=== PATIENT | female | born 1950 | race Caucasian/White ===

== ENCOUNTER 2019-02-26 11:35 | Inpatient (IN) | payer MEDICARE ==
[~2019-02-26] VITALS: Ht 167.6 cm; Wt 73.4 kg
[2019-02-26] MEDS ORDERED: 0.9% SODIUM CHLORIDE 10 ML SYRINGE IVP PRN ×2 (11:45→13:15)
[2019-02-26] MEDS ORDERED: SODIUM CHLORIDE 0.9% 1,000 ML IV ONE ×2 (11:45→21:30)
[2019-02-26] MEDS ORDERED: ACETAMINOPHEN 1000 MG/ISO-OSM 100 ML IV ONE (12:00)
[2019-02-26] MEDS ORDERED: CefTRIAXone SODIUM 2 GM in DEXTROSE 5%-WATER 50 ML IV ONE (12:00)
[2019-02-26] MEDS ORDERED: VANCOMYCIN HCL 1.5 GM in DEXTROSE 5%-WATER 250 ML IV ONE (12:00)
[2019-02-26 12:14] LABS: BASOPHILS % (AUTO) 0.8 % (0.0-2.0); EOSINOPHILS % (AUTO) 0.2 % (1.0-6.0); HEMATOCRIT 31.4 % (36-46); HEMOGLOBIN 10.6 g/dL (12.0-16.0); LYMPHOCYTES # (AUTO) 0.2 K/uL (1.0-4.8); LYMPHOCYTES % (AUTO) 3.8 % (22.0-44.0); MEAN CORPUSCULAR HEMOGLOBIN 32.1 pg (26.0-34.0); MEAN CORPUSCULAR HGB CONC 33.9 G/dL (31.0-37.0); MEAN CORPUSCULAR VOLUME 95 fL (80-100); MONOCYTES # (AUTO) 0.1 K/uL (0.1-1.0); MONOCYTES % (AUTO) 3.8 % (2.0-9.0); NEUTROPHILS # (AUTO) 3.6 K/uL (1.8-7.7); RED BLOOD CELL COUNT(AUTO) 3.32 MIL/uL (4.00-5.20); RED CELL DISTRIBUTION WIDTH 16.4 % (11.5-14.5)
[2019-02-26] MEDS ORDERED: LORazepam 2 MG/ML VIAL IVP ONE (12:15)
[2019-02-26 12:20] LABS: NEUTROPHILS % (AUTO) 91.4 % (40.0-70.0)
[2019-02-26 12:25] LABS: B-TYPE NATRIURETIC PEPTIDE 66 pg/mL (0-100)
[2019-02-26 12:29] LABS: INR 1.2 (0.9-1.1); PROTHROMBIN TIME 12.3 SEC (9.4-11.6)
[2019-02-26] MEDS ORDERED: HALOPERIDOL LACTATE 5 MG/ML VIAL IM ONE (12:30)
[2019-02-26 12:32] LABS: LACTIC ACID 5.1 mmol/L (0.4-2.0)
[2019-02-26 12:41] LABS: PLATELET COUNT (AUTO) 40 K/uL (150-450)
[2019-02-26 12:42] LABS: ALANINE AMINOTRANSFERASE 19 U/L (12-78); ALBUMIN 2.6 g/dL (3.4-5.0); ALKALINE PHOSPHATASE 500 U/L (46-116); ANION GAP 10 mmol/L (8-16); ASPARTATE AMINOTRANSFERASE 28 U/L (15-37); BILIRUBIN,TOTAL 3.1 mg/dL (0.1-1.0); CALCIUM, TOTAL 8.4 mg/dL (8.8-10.5); CARBON DIOXIDE 21 mmol/L (22-29); CHLORIDE 95 mmol/L (98-107); CREATININE 1.28 mg/dL (0.60-1.30); GLOMERULAR FILTR. RATE CALC 44 mL/min (>60); HCG,QUANTITATIVE < 1 mIU/mL (0-6); POTASSIUM 4.7 mmol/L (3.5-5.1); SODIUM SERUM 126 mmol/L (136-145); TOTAL PROTEIN, SERUM 6.3 g/dL (6.4-8.2); UREA NITROGEN, BLOOD 13 mg/dL (7-18)
[2019-02-26 12:50] LABS: GLUCOSE,RANDOM 741 mg/dL (70-110)
[2019-02-26] MEDS ORDERED: SODIUM CHLORIDE 0.45% 1,000 ML IV PRN (12:50)
[2019-02-26] MEDS ORDERED: INSULIN REGULAR, HUMAN 100 UNITS in SODIUM CHLORIDE 0.9% 99 ML IV PRN ×2 (12:50)
[2019-02-26] MEDS ORDERED: DEXTROSE 5%-0.45% SODIUM CHL 1,000 ML IV PRN (12:50)
[2019-02-26] MEDS ORDERED: SODIUM CHLORIDE 0.9% 1,000 ML IV SCH (12:50)
[2019-02-26] MEDS ORDERED: POTASSIUM CHL 20 MEQ/0.45% NS 1,000 ML IV PRN (12:50)
[2019-02-26] MEDS ORDERED: POTASSIUM CHLORIDE 40 MEQ in SODIUM CHLORIDE 0.45% 1,000 ML IV PRN (12:50)
[2019-02-26] MEDS ORDERED: INSULIN REGULAR, HUMAN 100 UNITS/ML IVP ONE (13:00)
[2019-02-26] MEDS ORDERED: DEXTROSE 50%-WATER 25 GM/50 ML SYRINGE IVP PRN ×2 (13:00→21:30)
[2019-02-26] MEDS ORDERED: ONDANSETRON HCL 4 MG/2 ML VIAL IVP PRN ×2 (13:15)
[2019-02-26] MEDS ORDERED: MAGNESIUM HYDROXIDE SUSPENSION 30 ML UDCUP PO PRN (13:15)
[2019-02-26] MEDS ORDERED: ACETAMINOPHEN 325 MG TABLET PO PRN ×2 (13:15)
[2019-02-26 13:16] LABS: INFLUENZA TYPE A NEGATIVE FOR TYPE A (NEGATIVE); INFLUENZA TYPE B NEGATIVE FOR TYPE B (NEGATIVE)
[2019-02-26] MEDS ORDERED: AZITHROMYCIN 500 MG/NS 250 ML IV ONE (13:30)
[2019-02-26 14:47] LABS: APPEARANCE,URINE CLEAR (CLEAR); BILIRUBIN,URINE NEGATIVE (NEGATIVE); GLUCOSE, URINE (UA) >=1000 mg/dL (NEGATIVE); KETONES,URINE NEGATIVE (NEGATIVE); LEUKOCYTE ESTERASE ,URINE NEGATIVE (NEGATIVE); NITRATE,URINE NEGATIVE (NEGATIVE); OCCULT BLOOD,URINE TRACE (NEGATIVE); PH,URINE 5.5 (5.0-8.0); PROTEIN,URINE NEGATIVE (NEGATIVE); UROBILINOGEN,URINE 0.2 mg/dL (<=1.0)
[2019-02-26 14:48] LABS: AMPHET/METH SCREEN,URINE NEGATIVE (NEGATIVE); BARBITURATE SCREEN, URINE NEGATIVE (NEGATIVE); BENZODIAZEPINES SCREEN,URINE NEGATIVE (NEGATIVE); CANNABINOID SCREEN,URINE NEGATIVE (NEGATIVE); COCAINE SCREEN,URINE NEGATIVE (NEGATIVE); METHADONE SCREEN, URINE NEGATIVE (NEGATIVE); OPIATE SCREEN,URINE NEGATIVE (NEGATIVE); PHENCYCLIDINE SCREEN,URINE NEGATIVE (NEGATIVE)
[2019-02-26 14:57] LABS: BACTERIA,URINE None Seen /HPF (None Seen); RBC,URINE 0-2 /HPF (0-2); SQUAMOUS EPITHELIAL CELL,UR Few /LPF (None Seen); WBC,URINE None Seen /HPF (0-5)
[2019-02-26 15:10] LABS: GLUCOSE,POINT OF CARE > 600 MG/DL (70-110)
[2019-02-26 16:13] LABS: BASOPHILS % (AUTO) 0.3 % (0.0-2.0); EOSINOPHILS % (AUTO) 0.3 % (1.0-6.0); HEMOGLOBIN 9.7 g/dL (12.0-16.0); LYMPHOCYTES # (AUTO) 0.3 K/uL (1.0-4.8); LYMPHOCYTES % (AUTO) 5.6 % (22.0-44.0); MEAN CORPUSCULAR HEMOGLOBIN 32.1 pg (26.0-34.0); MEAN CORPUSCULAR HGB CONC 34.7 G/dL (31.0-37.0); MEAN CORPUSCULAR VOLUME 93 fL (80-100); MONOCYTES # (AUTO) 0.3 K/uL (0.1-1.0); MONOCYTES % (AUTO) 5.7 % (2.0-9.0); NEUTROPHILS # (AUTO) 4.1 K/uL (1.8-7.7); PLATELET COUNT (AUTO) 36 K/uL (150-450); RED BLOOD CELL COUNT(AUTO) 3.02 MIL/uL (4.00-5.20); RED CELL DISTRIBUTION WIDTH 16.6 % (11.5-14.5)
[2019-02-26] MEDS: PIPERACILLIN/TAZO 3.375 GM/D5W 50 ML IV SCH ×2 (16:19→22:28)
[2019-02-26 16:24] LABS: NEUTROPHILS % (AUTO) 88.1 % (40.0-70.0)
[2019-02-26] MEDS: INSULIN REGULAR, HUMAN 100 UNITS/ML IVP PRN ×3 (16:26→18:30)
[2019-02-26 16:33] LABS: GLUCOSE,POINT OF CARE 563 MG/DL (70-110)
[2019-02-26 16:34] LABS: CALCIUM, TOTAL 8.1 mg/dL (8.8-10.5); CREATININE 1.09 mg/dL (0.60-1.30); POTASSIUM 4.4 mmol/L (3.5-5.1)
[2019-02-26 19:47] LABS: GLUCOSE,POINT OF CARE 519 MG/DL (70-110)
[2019-02-26 19:47] LABS: GLUCOSE,POINT OF CARE 406 MG/DL (70-110)
[2019-02-26 20:00] VITALS: BP 119/56
[2019-02-26 20:43] LABS: CALCIUM, TOTAL 7.9 mg/dL (8.8-10.5); CREATININE 1.02 mg/dL (0.60-1.30); POTASSIUM 3.4 mmol/L (3.5-5.1)
[2019-02-26] MEDS ORDERED: POTASSIUM CHLORIDE 20 MEQ ER TABLET PO PRN ×2 (21:30)
[2019-02-26] MEDS ORDERED: POTASSIUM CHL 10 MEQ/WATER 50 ML IV PRN (21:30)
[2019-02-26] MEDS: HEPARIN SODIUM,PORCINE 5,000 UNITS/ML VIAL SQ SCH (21:38)
[2019-02-26] MEDS: DOCUSATE SODIUM 100 MG CAPSULE PO SCH (21:38)
[2019-02-26] MEDS: INSULIN GLARGINE,HUM.REC.ANLOG 100 UNITS/ML SQ SCH (21:39)
[2019-02-26] MEDS: INSULIN LISPRO 100 UNITS/ML SQ PRN (21:57)
[2019-02-26 23:29] LABS: GLUCOSE,POINT OF CARE 171 MG/DL (70-110)
[2019-02-26 23:29] LABS: GLUCOSE,POINT OF CARE 188 MG/DL (70-110)
[2019-02-27] VITALS: BP 93/45
[2019-02-27 02:06] LABS: BASOPHILS % (AUTO) 0.3 % (0.0-2.0); EOSINOPHILS % (AUTO) 4.9 % (1.0-6.0); HEMATOCRIT 25.1 % (36-46); HEMOGLOBIN 8.8 g/dL (12.0-16.0); LYMPHOCYTES # (AUTO) 0.4 K/uL (1.0-4.8); LYMPHOCYTES % (AUTO) 11.7 % (22.0-44.0); MEAN CORPUSCULAR HGB CONC 34.9 G/dL (31.0-37.0); MEAN CORPUSCULAR VOLUME 92 fL (80-100); MONOCYTES # (AUTO) 0.2 K/uL (0.1-1.0); MONOCYTES % (AUTO) 6.2 % (2.0-9.0); NEUTROPHILS # (AUTO) 2.6 K/uL (1.8-7.7); NEUTROPHILS % (AUTO) 76.9 % (40.0-70.0); RED BLOOD CELL COUNT(AUTO) 2.74 MIL/uL (4.00-5.20); RED CELL DISTRIBUTION WIDTH 17.1 % (11.5-14.5)
[2019-02-27 02:26] LABS: CALCIUM, TOTAL 7.6 mg/dL (8.8-10.5); CREATININE 1.09 mg/dL (0.60-1.30); POTASSIUM 4.3 mmol/L (3.5-5.1)
[2019-02-27 02:31] LABS: PLATELET COUNT (AUTO) 40 K/uL (150-450)
[2019-02-27] MEDS: INSULIN LISPRO 100 UNITS/ML SQ PRN ×6 (02:37→20:13)
[2019-02-27 04:00] VITALS: BP 123/67
[2019-02-27] MEDS: PIPERACILLIN/TAZO 3.375 GM/D5W 50 ML IV SCH ×4 (04:54→22:28)
[2019-02-27 06:52] LABS: GLUCOSE,POINT OF CARE 311 MG/DL (70-110)
[2019-02-27 06:52] LABS: GLUCOSE,POINT OF CARE 278 MG/DL (70-110)
[2019-02-27] MEDS ORDERED: VANCOMYCIN HCL 750 MG in DEXTROSE 5%-WATER 250 ML IV SCH (07:00)
[2019-02-27 07:43] LABS: GLUCOSE,POINT OF CARE 246 MG/DL (70-110)
[2019-02-27 08:00] VITALS: BP 96/49
[2019-02-27] MEDS: FAMOTIDINE 20 MG TABLET PO SCH (08:45)
[2019-02-27] MEDS: HEPARIN SODIUM,PORCINE 5,000 UNITS/ML VIAL SQ SCH ×2 (08:45→20:14)
[2019-02-27] MEDS: DOCUSATE SODIUM 100 MG CAPSULE PO SCH ×2 (08:45→20:10)
[2019-02-27 10:03] LABS: GLUCOSE,POINT OF CARE 253 MG/DL (70-110)
[2019-02-27 11:05] VITALS: BP 120/59
[2019-02-27 15:15] VITALS: BP 118/66
[2019-02-27] MEDS ORDERED: SODIUM CHLORIDE 0.9% 250 ML IV ONE (15:19)
[2019-02-27] MEDS: VANCOMYCIN HCL 1 GM/D5% WATER 200 ML IV SCH (18:18)
[2019-02-27 20:03] VITALS: BP 137/63
[2019-02-27] MEDS: INSULIN GLARGINE,HUM.REC.ANLOG 100 UNITS/ML SQ SCH (20:12)
[2019-02-27 23:32] LABS: GLUCOMETER DEV NAME(LOC) 5N.1; GLUCOSE,POINT OF CARE 303 MG/DL (70-110)
[2019-02-27 23:32] LABS: GLUCOMETER DEV NAME(LOC) 5N.1; GLUCOSE,POINT OF CARE 432 MG/DL (70-110)
[2019-02-27 23:32] LABS: GLUCOMETER DEV NAME(LOC) 5N.1; GLUCOSE,POINT OF CARE 428 MG/DL (70-110)
[2019-02-27 23:32] LABS: GLUCOMETER DEV NAME(LOC) 5N.1; GLUCOSE,POINT OF CARE 375 MG/DL (70-110)
[2019-02-28 00:03] VITALS: BP 130/54
[2019-02-28] MEDS: INSULIN LISPRO 100 UNITS/ML SQ PRN ×6 (00:55→20:05)
[2019-02-28] MEDS: PIPERACILLIN/TAZO 3.375 GM/D5W 50 ML IV SCH ×4 (04:00→21:42)
[2019-02-28 04:54] VITALS: BP 132/63
[2019-02-28 05:21] LABS: GLUCOMETER DEV NAME(LOC) 5N.1; GLUCOSE,POINT OF CARE 339 MG/DL (70-110)
[2019-02-28 05:21] LABS: GLUCOMETER DEV NAME(LOC) 5N.1; GLUCOSE,POINT OF CARE 314 MG/DL (70-110)
[2019-02-28] MEDS: VANCOMYCIN HCL 1 GM/D5% WATER 200 ML IV SCH ×2 (07:01→18:09)
[2019-02-28 07:40] LABS: ANION GAP 5 mmol/L (8-16); CALCIUM, TOTAL 7.8 mg/dL (8.8-10.5); CARBON DIOXIDE 25 mmol/L (22-29); CHLORIDE 107 mmol/L (98-107); CREATININE 0.96 mg/dL (0.60-1.30); GLOMERULAR FILTR. RATE CALC > 60 mL/min (>60); GLUCOSE,RANDOM 383 mg/dL (70-110); POTASSIUM 4.7 mmol/L (3.5-5.1); SODIUM SERUM 137 mmol/L (136-145); UREA NITROGEN, BLOOD 18 mg/dL (7-18)
[2019-02-28 08:11] VITALS: BP 144/65
[2019-02-28] MEDS: HEPARIN SODIUM,PORCINE 5,000 UNITS/ML VIAL SQ SCH ×2 (09:00→19:59)
[2019-02-28] MEDS ORDERED: INSULIN GLARGINE,HUM.REC.ANLOG 100 UNITS/ML SQ SCH (09:30)
[2019-02-28] MEDS: FAMOTIDINE 20 MG TABLET PO SCH (10:57)
[2019-02-28] MEDS: DOCUSATE SODIUM 100 MG CAPSULE PO SCH ×2 (10:57→19:57)
[2019-02-28] MEDS: LACTULOSE 20 GM/30 ML SOLUTION UDCUP PO SCH ×3 (10:57→19:58)
[2019-02-28 12:03] VITALS: BP 150/68
[2019-02-28] MEDS: INSULIN GLARGINE,HUM.REC.ANLOG 100 UNITS/ML SQ SCH (20:04)
[2019-02-28 20:47] LABS: GLUCOMETER DEV NAME(LOC) 5N.1; GLUCOSE,POINT OF CARE 391 MG/DL (70-110)
[2019-02-28 20:47] LABS: GLUCOMETER DEV NAME(LOC) 5N.1; GLUCOSE,POINT OF CARE 405 MG/DL (70-110)
[2019-02-28 20:47] LABS: GLUCOMETER DEV NAME(LOC) 5N.1; GLUCOSE,POINT OF CARE 296 MG/DL (70-110)
[2019-02-28 20:47] LABS: GLUCOMETER DEV NAME(LOC) 5N.1; GLUCOSE,POINT OF CARE 184 MG/DL (70-110)
[2019-02-28 20:53] VITALS: BP 156/73
[2019-03-01] MEDS: INSULIN LISPRO 100 UNITS/ML SQ PRN ×3 (00:05→12:19)
[2019-03-01 00:10] VITALS: BP 142/63
[2019-03-01 02:00] LABS: GLUCOMETER DEV NAME(LOC) 5N.1; GLUCOSE,POINT OF CARE 252 MG/DL (70-110)
[2019-03-01] MEDS: PIPERACILLIN/TAZO 3.375 GM/D5W 50 ML IV SCH ×2 (04:08→10:35)
[2019-03-01 04:27] LABS: GLUCOMETER DEV NAME(LOC) 5N.1; GLUCOSE,POINT OF CARE 175 MG/DL (70-110)
[2019-03-01 05:07] VITALS: BP 104/53
[2019-03-01] MEDS: VANCOMYCIN HCL 1 GM/D5% WATER 200 ML IV SCH (06:42)
[2019-03-01 06:46] LABS: ANION GAP 4 mmol/L (8-16); CARBON DIOXIDE 27 mmol/L (22-29); CHLORIDE 105 mmol/L (98-107); CREATININE 0.89 mg/dL (0.60-1.30); GLOMERULAR FILTR. RATE CALC > 60 mL/min (>60); GLUCOSE,RANDOM 180 mg/dL (70-110); POTASSIUM 4.1 mmol/L (3.5-5.1); SODIUM SERUM 136 mmol/L (136-145); UREA NITROGEN, BLOOD 17 mg/dL (7-18); VANCOMYCIN,RANDOM 16.2 mcg/mL (25.0-50.0)
[2019-03-01 08:09] VITALS: BP 142/61
[2019-03-01] MEDS: FAMOTIDINE 20 MG TABLET PO SCH (08:30)
[2019-03-01] MEDS: DOCUSATE SODIUM 100 MG CAPSULE PO SCH (08:32)
[2019-03-01] MEDS: HEPARIN SODIUM,PORCINE 5,000 UNITS/ML VIAL SQ SCH (08:32)
[2019-03-01] MEDS: LACTULOSE 20 GM/30 ML SOLUTION UDCUP PO SCH (08:33)
[2019-03-01] MEDS: INSULIN GLARGINE,HUM.REC.ANLOG 100 UNITS/ML SQ SCH (08:47)
[2019-03-01 11:15] VITALS: BP 154/67
[2019-03-01 12:02] LABS: GLUCOMETER DEV NAME(LOC) 5N.1; GLUCOSE,POINT OF CARE 247 MG/DL (70-110)
[2019-03-01] MEDS ORDERED: INSLAN SQ (13:00)
[2019-03-01] MEDS ORDERED: LEVO500 PO (13:25)
[2019-03-01] MEDS ORDERED: LACT30L PO (13:26)
[2019-03-01] MEDS ORDERED: INSULIN GLARGINE,HUM.REC.ANLOG 100 UNITS/ML SQ SCH (21:00)
[2019-03-02 00:36] LABS: GLUCOMETER DEV NAME(LOC) 5N.1; GLUCOSE,POINT OF CARE 374 MG/DL (70-110)
== END 2019-03-01 14:50 | disposition home or self-care (01) | DRG 871 ==
LOC: EMS 11:41 → ICU 16:42 → EDBD 16:42 → 5N 02-27 10:50
PROVIDERS: ADMIT Internal Medicine; ATTEND Internal Medicine
DX: A41.9 Sepsis, unspecified organism (principal); E11.10 Type 2 diabetes mellitus with ketoacidosis without coma; G93.41 Metabolic encephalopathy; E43 Unspecified severe protein-calorie malnutrition; J69.0 Pneumonitis due to inhalation of food and vomit; E87.1 Hypo-osmolality and hyponatremia; D61.818 Other pancytopenia; D69.6 Thrombocytopenia, unspecified; Z68.26 Body mass index [BMI] 26.0-26.9, adult; K74.60 Unspecified cirrhosis of liver; K72.90 Hepatic failure, unspecified without coma; Z91.19 Patient's noncompliance with other medical treatment and regimen; Z79.4 Long term (current) use of insulin
CPT/HCPCS: 70450; 83605; 83930; 84145; 87040; 87081; 87804; 93005; 97162; 99291; G0378; G0480; J0131; J0456; J0696; J1630; J1644; J1815; J2060; J2543; J3370; J7030; J7050; J7060

== ENCOUNTER 2019-03-19 08:16 | Emergency (ER) | payer MEDICARE ==
[~2019-03-19] VITALS: Ht 167.6 cm; Wt 73.4 kg
[~2019-03-19 08:16] MED LIST: FEXO-58 PO; GLYB5 PO; HYDR-1475 PO; INSLAN SQ; LACT300R PR; LACT30L PO; LEVO-72 PO; LEVO75 PO; LISI-660 PO; LOSA100T58 PO; RIFAX550 PO
[2019-03-19 08:21] VITALS: BP 118/60
[2019-03-19 08:36] LABS: GLUCOSE,POINT OF CARE 373 MG/DL (70-110)
[2019-03-19] MEDS ORDERED: BUME1TAB34 PO (08:40)
[2019-03-19] MEDS ORDERED: METF-960 PO (08:40)
[2019-03-19] MEDS ORDERED: SPIR50 PO (08:40)
[2019-03-19] MEDS ORDERED: FURO40 PO (08:40)
[2019-03-19] MEDS ORDERED: NEBI5 PO (08:40)
[2019-03-19] MEDS ORDERED: CLOT15CR71 TP (08:43)
[2019-03-19] MEDS ORDERED: ERYT3.5O8 OD (08:43)
[2019-03-19] MEDS ORDERED: DICL2100G TP (08:43)
[2019-03-19] MEDS ORDERED: SODIUM CHLORIDE 0.9% 500 ML IV ONE (09:15)
[2019-03-19 09:38] LABS: BASOPHILS % (AUTO) 0.7 % (0.0-2.0); EOSINOPHILS % (AUTO) 5.6 % (1.0-6.0); HEMATOCRIT 31.6 % (36-46); HEMOGLOBIN 11.4 g/dL (12.0-16.0); LYMPHOCYTES # (AUTO) 0.6 K/uL (1.0-4.8); LYMPHOCYTES % (AUTO) 18.9 % (22.0-44.0); MEAN CORPUSCULAR HEMOGLOBIN 32.9 pg (26.0-34.0); MEAN CORPUSCULAR HGB CONC 36.1 G/dL (31.0-37.0); MEAN CORPUSCULAR VOLUME 91 fL (80-100); MONOCYTES # (AUTO) 0.3 K/uL (0.1-1.0); MONOCYTES % (AUTO) 9.1 % (2.0-9.0); NEUTROPHILS % (AUTO) 65.7 % (40.0-70.0); RED BLOOD CELL COUNT(AUTO) 3.47 MIL/uL (4.00-5.20); RED CELL DISTRIBUTION WIDTH 16.6 % (11.5-14.5)
[2019-03-19 09:50] LABS: CALCIUM, TOTAL 9.1 mg/dL (8.8-10.5); CREATININE 0.96 mg/dL (0.60-1.30); POTASSIUM 4.1 mmol/L (3.5-5.1)
[2019-03-19 09:53] LABS: ALBUMIN 2.8 g/dL (3.4-5.0); BILIRUBIN,TOTAL 4.2 mg/dL (0.1-1.0); TOTAL PROTEIN, SERUM 6.7 g/dL (6.4-8.2)
[2019-03-19 09:54] LABS: PLATELET COUNT (AUTO) 62 K/uL (150-450)
[2019-03-19 09:54] LABS: APPEARANCE,URINE CLEAR (CLEAR); BILIRUBIN,URINE NEGATIVE (NEGATIVE); GLUCOSE, URINE (UA) 500 mg/dL (NEGATIVE); KETONES,URINE NEGATIVE (NEGATIVE); LEUKOCYTE ESTERASE ,URINE NEGATIVE (NEGATIVE); NITRATE,URINE NEGATIVE (NEGATIVE); PROTEIN,URINE NEGATIVE (NEGATIVE)
[2019-03-19 10:01] LABS: OCCULT BLOOD,URINE SMALL (NEGATIVE)
[2019-03-19 10:02] LABS: BACTERIA,URINE None Seen /HPF (None Seen); SQUAMOUS EPITHELIAL CELL,UR Few /LPF (None Seen); WBC,URINE None Seen /HPF (0-5)
[2019-03-19 10:42] LABS: GLUCOSE,POINT OF CARE 295 MG/DL (70-110)
[2019-03-19 11:43] LABS: AMMONIA 98 umol/L (11-32)
[2019-03-19 11:44] LABS: TROPONIN I < 0.02 ng/mL (0.00-0.05)
[2019-03-19] MEDS ORDERED: LACTULOSE 20 GM/30 ML SOLUTION UDCUP PO ONE (12:00)
[2019-03-19 12:12] LABS: GLUCOSE,POINT OF CARE 208 MG/DL (70-110)
== END 2019-03-19 14:10 | disposition home or self-care (01) ==
LOC: EMS 08:19
DX: E11.65 Type 2 diabetes mellitus with hyperglycemia (principal); K72.90 Hepatic failure, unspecified without coma; D61.818 Other pancytopenia; E44.0 Moderate protein-calorie malnutrition; K74.60 Unspecified cirrhosis of liver; I10 Essential (primary) hypertension; Z79.899 Other long term (current) drug therapy; Z79.84 Long term (current) use of oral hypoglycemic drugs; Z79.4 Long term (current) use of insulin
CPT/HCPCS: 36415; 80053; 81001; 82140; 82962; 83880; 84484; 85025; 99283; G0480; J7040

== ENCOUNTER 2019-05-04 13:48 | Inpatient (IN) | payer MEDICARE, OTHER ==
[~2019-05-04] VITALS: Ht 160 cm; Wt 65.2 kg
[~2019-05-04 13:48] MED LIST changes: +BUME1TAB34 PO; +CLOT15CR71 TP; +DICL2100G TP; +ERYT3.5O8 OD; +FURO40 PO; +METF-960 PO; +NEBI5 PO; +SPIR50 PO
[2019-05-04 14:25] LABS: BASOPHILS % (AUTO) 0.5 % (0.0-2.0); EOSINOPHILS % (AUTO) 4.2 % (1.0-6.0); HEMATOCRIT 30.5 % (36-46); HEMOGLOBIN 10.6 g/dL (12.0-16.0); LYMPHOCYTES # (AUTO) 0.5 K/uL (1.0-4.8); LYMPHOCYTES % (AUTO) 18.7 % (22.0-44.0); MEAN CORPUSCULAR HEMOGLOBIN 32.7 pg (26.0-34.0); MEAN CORPUSCULAR HGB CONC 34.7 G/dL (31.0-37.0); MEAN CORPUSCULAR VOLUME 94 fL (80-100); MONOCYTES # (AUTO) 0.2 K/uL (0.1-1.0); MONOCYTES % (AUTO) 7.3 % (2.0-9.0); NEUTROPHILS # (AUTO) 1.7 K/uL (1.8-7.7); NEUTROPHILS % (AUTO) 69.3 % (40.0-70.0); PLATELET COUNT (AUTO) 68 K/uL (150-450); RED BLOOD CELL COUNT(AUTO) 3.23 MIL/uL (4.00-5.20); RED CELL DISTRIBUTION WIDTH 17.2 % (11.5-14.5)
[2019-05-04 14:42] LABS: CALCIUM, TOTAL 8.8 mg/dL (8.8-10.5); CREATININE 0.95 mg/dL (0.60-1.30); POTASSIUM 4.2 mmol/L (3.5-5.1)
[2019-05-04 14:47] LABS: AMMONIA 180 umol/L (11-32); LACTIC ACID 1.5 mmol/L (0.4-2.0)
[2019-05-04 14:51] LABS: TROPONIN I < 0.02 ng/mL (0.00-0.05)
[2019-05-04 14:54] LABS: ALBUMIN 2.6 g/dL (3.4-5.0); BILIRUBIN,TOTAL 3.2 mg/dL (0.1-1.0); TOTAL PROTEIN, SERUM 6.1 g/dL (6.4-8.2)
[2019-05-04 15:02] LABS: INR 1.2 (0.9-1.1); PROTHROMBIN TIME 11.8 SEC (9.4-11.6)
[2019-05-04 15:33] LABS: GLUCOSE,POINT OF CARE 166 MG/DL (70-110)
[2019-05-04 15:40] LABS: AMPHET/METH SCREEN,URINE NEGATIVE (NEGATIVE); BARBITURATE SCREEN, URINE NEGATIVE (NEGATIVE); BENZODIAZEPINES SCREEN,URINE NEGATIVE (NEGATIVE); CANNABINOID SCREEN,URINE NEGATIVE (NEGATIVE); COCAINE SCREEN,URINE NEGATIVE (NEGATIVE); METHADONE SCREEN, URINE NEGATIVE (NEGATIVE); OPIATE SCREEN,URINE NEGATIVE (NEGATIVE)
[2019-05-04 15:41] LABS: PHENCYCLIDINE SCREEN,URINE NEGATIVE (NEGATIVE)
[2019-05-04 15:45] LABS: APPEARANCE,URINE CLOUDY (CLEAR); BILIRUBIN,URINE NEGATIVE (NEGATIVE); GLUCOSE, URINE (UA) NEGATIVE (NEGATIVE); KETONES,URINE NEGATIVE (NEGATIVE); LEUKOCYTE ESTERASE ,URINE MODERATE (NEGATIVE); NITRATE,URINE NEGATIVE (NEGATIVE); OCCULT BLOOD,URINE NEGATIVE (NEGATIVE); PH,URINE 7.5 (5.0-8.0); PROTEIN,URINE TRACE (NEGATIVE)
[2019-05-04] MEDS ORDERED: LACTULOSE 200 GM/300 ML RECTAL SOLUTION PR ONE (15:45)
[2019-05-04 15:57] LABS: PLATELET MORPHOLOGY COMMENT DECREASED
[2019-05-04 16:10] LABS: BACTERIA,URINE Many /HPF (None Seen); RBC,URINE 0-2 /HPF (0-2); SQUAMOUS EPITHELIAL CELL,UR Few /LPF (None Seen); WBC,URINE 26-50 /HPF (0-5)
[2019-05-04] MEDS ORDERED: ONDANSETRON HCL 4 MG/2 ML VIAL IVP PRN (16:15)
[2019-05-04] MEDS ORDERED: CefTRIAXone 1 GM/DEXTROSE 50 ML IV ONE (16:15)
[2019-05-04] MEDS ORDERED: ACETAMINOPHEN 325 MG TABLET PO PRN (16:15)
[2019-05-04 21:22] VITALS: BP 145/62
[2019-05-04 23:10] VITALS: BP 144/75
[2019-05-05] VITALS (7 sets, daily range): BP systolic 128–139; BP diastolic 60–78
[2019-05-05] MEDS ORDERED: LEVO50 PO (01:37)
[2019-05-05] MEDS ORDERED: THIA100T92 PO (01:37)
[2019-05-05] MEDS ORDERED: LACT30L PO (01:37)
[2019-05-05] MEDS ORDERED: CYAN-53 PO (01:37)
[2019-05-05] MEDS ORDERED: FOLI1 PO (01:37)
[2019-05-05] MEDS ORDERED: FURO-152 PO (01:37)
[2019-05-05] MEDS ORDERED: PANT40TA25 PO (01:37)
[2019-05-05] MEDS ORDERED: INSLAN SQ (01:37)
[2019-05-05] MEDS ORDERED: AMLO10TA55 PO (01:37)
[2019-05-05] MEDS ORDERED: RIFAX550 PO (01:37)
[2019-05-05] MEDS ORDERED: DULA1.5P SQ (01:37)
[2019-05-05] MEDS ORDERED: SPIR50 PO (01:37)
[2019-05-05] MEDS ORDERED: BISA10SU61 PR (01:37)
[2019-05-05] MEDS: LEVOTHYROXINE SODIUM 75 MCG TABLET PO SCH (06:30)
[2019-05-05] MEDS ORDERED: SODIUM CHLORIDE 0.9% IRRIG BTL 1,000 ML IRRIG ONE (06:42)
[2019-05-05] MEDS: LACTULOSE 200 GM/300 ML RECTAL SOLUTION PR SCH ×2 (06:44→11:42)
[2019-05-05 06:47] LABS: GLUCOMETER DEV NAME(LOC) 5S.2A; GLUCOSE,POINT OF CARE 158 MG/DL (70-110)
[2019-05-05] MEDS: BUMETANIDE 1 MG TABLET PO SCH (10:32)
[2019-05-05] MEDS: RIFAXIMIN 550 MG TABLET PO SCH (10:32)
[2019-05-05] MEDS: SPIRONOLACTONE 50 MG TABLET PO SCH (11:41)
[2019-05-05] MEDS ORDERED: DEXTROSE 50%-WATER 25 GM/50 ML SYRINGE IVP PRN (14:00)
[2019-05-05] MEDS: LACTULOSE 20 GM/30 ML SOLUTION UDCUP PO SCH ×2 (16:11→21:15)
[2019-05-05] MEDS: INSULIN LISPRO 100 UNITS/ML SQ PRN ×2 (17:33→21:41)
[2019-05-06 04:12] VITALS: BP 123/60
[2019-05-06] MEDS: LEVOTHYROXINE SODIUM 75 MCG TABLET PO SCH (06:34)
[2019-05-06 06:59] LABS: BASOPHILS % (AUTO) 0.7 % (0.0-2.0); EOSINOPHILS % (AUTO) 4.9 % (1.0-6.0); HEMATOCRIT 30.2 % (36-46); HEMOGLOBIN 10.9 g/dL (12.0-16.0); LYMPHOCYTES # (AUTO) 0.7 K/uL (1.0-4.8); LYMPHOCYTES % (AUTO) 21.7 % (22.0-44.0); MEAN CORPUSCULAR HEMOGLOBIN 33.7 pg (26.0-34.0); MEAN CORPUSCULAR HGB CONC 36.1 G/dL (31.0-37.0); MEAN CORPUSCULAR VOLUME 93 fL (80-100); MONOCYTES # (AUTO) 0.3 K/uL (0.1-1.0); MONOCYTES % (AUTO) 8.1 % (2.0-9.0); NEUTROPHILS % (AUTO) 64.6 % (40.0-70.0); PLATELET COUNT (AUTO) 64 K/uL (150-450); RED BLOOD CELL COUNT(AUTO) 3.24 MIL/uL (4.00-5.20); RED CELL DISTRIBUTION WIDTH 16.4 % (11.5-14.5)
[2019-05-06 07:11] LABS: CALCIUM, TOTAL 8.5 mg/dL (8.8-10.5); CREATININE 0.94 mg/dL (0.60-1.30); POTASSIUM 3.6 mmol/L (3.5-5.1)
[2019-05-06 07:37] VITALS: BP 149/68
[2019-05-06 08:21] LABS: GLUCOMETER DEV NAME(LOC) 5N.2; GLUCOSE,POINT OF CARE 139 MG/DL (70-110)
[2019-05-06 08:21] LABS: GLUCOMETER DEV NAME(LOC) 5N.2; GLUCOSE,POINT OF CARE 271 MG/DL (70-110)
[2019-05-06 08:21] LABS: GLUCOMETER DEV NAME(LOC) 5N.2; GLUCOSE,POINT OF CARE 341 MG/DL (70-110)
[2019-05-06] MEDS: SPIRONOLACTONE 50 MG TABLET PO SCH (08:45)
[2019-05-06] MEDS: BUMETANIDE 1 MG TABLET PO SCH (08:45)
[2019-05-06] MEDS: LACTULOSE 20 GM/30 ML SOLUTION UDCUP PO SCH ×4 (08:46→20:35)
[2019-05-06] MEDS: RIFAXIMIN 550 MG TABLET PO SCH (08:46)
[2019-05-06] MEDS: INSULIN LISPRO 100 UNITS/ML SQ PRN ×3 (12:26→20:35)
[2019-05-06 12:39] VITALS: BP 133/68
[2019-05-06 16:04] VITALS: BP 136/64
[2019-05-06 19:58] LABS: GLUCOMETER DEV NAME(LOC) 5S.2A; GLUCOSE,POINT OF CARE 234 MG/DL (70-110)
[2019-05-06 19:58] LABS: GLUCOMETER DEV NAME(LOC) 5S.2A; GLUCOSE,POINT OF CARE 295 MG/DL (70-110)
[2019-05-06] MEDS ORDERED: CefTRIAXone 1 GM/DEXTROSE 50 ML IV SCH (20:00)
[2019-05-06 20:19] VITALS: BP 119/62
[2019-05-06] MEDS ORDERED: SODIUM CHLORIDE 0.9% 250 ML IV ONE (20:37)
[2019-05-06 22:13] LABS: GLUCOMETER DEV NAME(LOC) 5S.2A; GLUCOSE,POINT OF CARE 208 MG/DL (70-110)
[2019-05-06 23:57] VITALS: BP 126/70
[2019-05-07] MEDS ORDERED: INSULIN LISPRO 100 UNITS/ML SQ PRN
[2019-05-07] MEDS ORDERED: DEXTROSE 50%-WATER 25 GM/50 ML SYRINGE IVP PRN
[2019-05-07 03:28] VITALS: BP 131/65
[2019-05-07] MEDS: LEVOTHYROXINE SODIUM 75 MCG TABLET PO SCH (05:39)
[2019-05-07] MEDS: INSULIN LISPRO 100 UNITS/ML SQ PRN ×4 (05:55→21:53)
[2019-05-07 07:11] LABS: BASOPHILS % (AUTO) 0.7 % (0.0-2.0); EOSINOPHILS % (AUTO) 5.7 % (1.0-6.0); HEMATOCRIT 27.9 % (36-46); HEMOGLOBIN 9.8 g/dL (12.0-16.0); LYMPHOCYTES # (AUTO) 0.6 K/uL (1.0-4.8); LYMPHOCYTES % (AUTO) 17.5 % (22.0-44.0); MEAN CORPUSCULAR HEMOGLOBIN 32.7 pg (26.0-34.0); MEAN CORPUSCULAR HGB CONC 35.3 G/dL (31.0-37.0); MEAN CORPUSCULAR VOLUME 93 fL (80-100); MONOCYTES # (AUTO) 0.3 K/uL (0.1-1.0); MONOCYTES % (AUTO) 7.3 % (2.0-9.0); NEUTROPHILS # (AUTO) 2.4 K/uL (1.8-7.7); NEUTROPHILS % (AUTO) 68.8 % (40.0-70.0); PLATELET COUNT (AUTO) 65 K/uL (150-450); RED BLOOD CELL COUNT(AUTO) 3.01 MIL/uL (4.00-5.20); RED CELL DISTRIBUTION WIDTH 16.4 % (11.5-14.5)
[2019-05-07 07:43] VITALS: BP 129/55
[2019-05-07] MEDS: LACTULOSE 20 GM/30 ML SOLUTION UDCUP PO SCH ×5 (08:40→21:52)
[2019-05-07] MEDS: RIFAXIMIN 550 MG TABLET PO SCH (08:40)
[2019-05-07] MEDS: BUMETANIDE 1 MG TABLET PO SCH (08:40)
[2019-05-07] MEDS: SPIRONOLACTONE 50 MG TABLET PO SCH (09:27)
[2019-05-07 11:18] VITALS: BP 120/46
[2019-05-07 15:54] VITALS: BP 98/52
[2019-05-07] MEDS ORDERED: CEFO1I IM (16:02)
[2019-05-07] MEDS ORDERED: INSU100V SQ (16:03)
[2019-05-07] MEDS: CefoTEtan DISOD 1 GM/DEXTROSE 50 ML IV SCH (16:24)
[2019-05-07 17:27] LABS: GLUCOMETER DEV NAME(LOC) 5S.2A; GLUCOSE,POINT OF CARE 322 MG/DL (70-110)
[2019-05-07 20:05] VITALS: BP 119/60
[2019-05-07 23:41] VITALS: BP 111/57
[2019-05-08] MEDS: CefoTEtan DISOD 1 GM/DEXTROSE 50 ML IV SCH ×2 (03:42→17:37)
[2019-05-08 04:49] VITALS: BP 105/56
[2019-05-08 05:44] LABS: GLUCOMETER DEV NAME(LOC) 5N.2; GLUCOSE,POINT OF CARE 255 MG/DL (70-110)
[2019-05-08 05:44] LABS: GLUCOMETER DEV NAME(LOC) 5N.2; GLUCOSE,POINT OF CARE 251 MG/DL (70-110)
[2019-05-08 06:03] LABS: GLUCOMETER DEV NAME(LOC) 5N.1; GLUCOSE,POINT OF CARE 183 MG/DL (70-110)
[2019-05-08] MEDS: LEVOTHYROXINE SODIUM 75 MCG TABLET PO SCH (06:11)
[2019-05-08] MEDS: INSULIN LISPRO 100 UNITS/ML SQ PRN ×4 (06:12→22:03)
[2019-05-08 07:30] VITALS: BP 115/58
[2019-05-08] MEDS: LACTULOSE 20 GM/30 ML SOLUTION UDCUP PO SCH ×4 (08:24→20:43)
[2019-05-08] MEDS: SPIRONOLACTONE 50 MG TABLET PO SCH (08:24)
[2019-05-08] MEDS: RIFAXIMIN 550 MG TABLET PO SCH (08:24)
[2019-05-08] MEDS: BUMETANIDE 1 MG TABLET PO SCH (08:24)
[2019-05-08 11:10] VITALS: BP 131/62
[2019-05-08 14:13] LABS: GLUCOMETER DEV NAME(LOC) 5N.2; GLUCOSE,POINT OF CARE 284 MG/DL (70-110)
[2019-05-08 17:38] VITALS: BP 148/63
[2019-05-08 19:21] VITALS: BP 144/63
[2019-05-08] MEDS: ACETAMINOPHEN 325 MG TABLET PO PRN (23:50)
[2019-05-09] MEDS: ACETAMINOPHEN 325 MG TABLET PO PRN (00:02)
[2019-05-09 00:24] VITALS: BP 125/70
[2019-05-09 01:13] LABS: GLUCOMETER DEV NAME(LOC) 5N.1; GLUCOSE,POINT OF CARE 199 MG/DL (70-110)
[2019-05-09 01:13] LABS: GLUCOMETER DEV NAME(LOC) 5N.1; GLUCOSE,POINT OF CARE 385 MG/DL (70-110)
[2019-05-09] MEDS: CefoTEtan DISOD 1 GM/DEXTROSE 50 ML IV SCH ×2 (04:03→16:29)
[2019-05-09 04:04] VITALS: BP 106/54
[2019-05-09] MEDS: LEVOTHYROXINE SODIUM 75 MCG TABLET PO SCH (06:05)
[2019-05-09] MEDS: INSULIN LISPRO 100 UNITS/ML SQ PRN ×2 (06:05→20:20)
[2019-05-09 06:10] LABS: GLUCOMETER DEV NAME(LOC) 5N.2; GLUCOSE,POINT OF CARE 205 MG/DL (70-110)
[2019-05-09 08:52] VITALS: BP 135/55
[2019-05-09] MEDS: SPIRONOLACTONE 50 MG TABLET PO SCH (08:53)
[2019-05-09] MEDS: LACTULOSE 20 GM/30 ML SOLUTION UDCUP PO SCH ×4 (08:54→20:11)
[2019-05-09] MEDS: RIFAXIMIN 550 MG TABLET PO SCH (08:54)
[2019-05-09] MEDS: BUMETANIDE 1 MG TABLET PO SCH (08:54)
[2019-05-09 20:22] VITALS: BP 123/55
[2019-05-10 00:10] VITALS: BP 117/62
[2019-05-10] MEDS: CefoTEtan DISOD 1 GM/DEXTROSE 50 ML IV SCH ×2 (03:22→16:06)
[2019-05-10 04:40] VITALS: BP 122/56
[2019-05-10] MEDS: LEVOTHYROXINE SODIUM 75 MCG TABLET PO SCH (05:41)
[2019-05-10] MEDS: INSULIN LISPRO 100 UNITS/ML SQ PRN ×4 (05:50→22:32)
[2019-05-10 06:46] LABS: EOSINOPHILS % (AUTO) 6.3 % (1.0-6.0); HEMATOCRIT 26.8 % (36-46); HEMOGLOBIN 9.5 g/dL (12.0-16.0); LYMPHOCYTES # (AUTO) 0.5 K/uL (1.0-4.8); LYMPHOCYTES % (AUTO) 19.3 % (22.0-44.0); MEAN CORPUSCULAR HEMOGLOBIN 33.5 pg (26.0-34.0); MEAN CORPUSCULAR HGB CONC 35.5 G/dL (31.0-37.0); MEAN CORPUSCULAR VOLUME 95 fL (80-100); MONOCYTES # (AUTO) 0.2 K/uL (0.1-1.0); MONOCYTES % (AUTO) 8.1 % (2.0-9.0); NEUTROPHILS # (AUTO) 1.6 K/uL (1.8-7.7); NEUTROPHILS % (AUTO) 65.3 % (40.0-70.0); PLATELET COUNT (AUTO) 56 K/uL (150-450); RED BLOOD CELL COUNT(AUTO) 2.83 MIL/uL (4.00-5.20); RED CELL DISTRIBUTION WIDTH 16.9 % (11.5-14.5)
[2019-05-10 07:13] LABS: ALBUMIN 2.2 g/dL (3.4-5.0); BILIRUBIN,TOTAL 1.9 mg/dL (0.1-1.0); CREATININE 1.2 mg/dL (0.60-1.30); POTASSIUM 4.4 mmol/L (3.5-5.1); TOTAL PROTEIN, SERUM 5.6 g/dL (6.4-8.2)
[2019-05-10 07:45] VITALS: BP 104/45
[2019-05-10] MEDS: SPIRONOLACTONE 50 MG TABLET PO SCH (08:00)
[2019-05-10] MEDS: RIFAXIMIN 550 MG TABLET PO SCH (08:00)
[2019-05-10] MEDS: BUMETANIDE 1 MG TABLET PO SCH (08:00)
[2019-05-10] MEDS: LACTULOSE 20 GM/30 ML SOLUTION UDCUP PO SCH ×4 (08:01→22:03)
[2019-05-10 11:35] VITALS: BP 121/54
[2019-05-10 12:19] LABS: GLUCOMETER DEV NAME(LOC) 5S.2A; GLUCOSE,POINT OF CARE 285 MG/DL (70-110)
[2019-05-10 12:34] LABS: GLUCOMETER DEV NAME(LOC) 5N.1; GLUCOSE,POINT OF CARE 361 MG/DL (70-110)
[2019-05-10 12:34] LABS: GLUCOMETER DEV NAME(LOC) 5N.1; GLUCOSE,POINT OF CARE 305 MG/DL (70-110)
[2019-05-10 13:37] LABS: GLUCOMETER DEV NAME(LOC) 5N.2; GLUCOSE,POINT OF CARE 357 MG/DL (70-110)
[2019-05-10 16:35] VITALS: BP 122/56
[2019-05-10 21:13] VITALS: BP 128/57
[2019-05-10 22:25] LABS: GLUCOMETER DEV NAME(LOC) 5S.2A; GLUCOSE,POINT OF CARE 311 MG/DL (70-110)
[2019-05-10 22:25] LABS: GLUCOMETER DEV NAME(LOC) 5S.2A; GLUCOSE,POINT OF CARE 392 MG/DL (70-110)
[2019-05-11 00:50] VITALS: BP 133/65
[2019-05-11] MEDS: CefoTEtan DISOD 1 GM/DEXTROSE 50 ML IV SCH (03:38)
[2019-05-11 05:15] VITALS: BP 129/83
[2019-05-11] MEDS: LEVOTHYROXINE SODIUM 75 MCG TABLET PO SCH (06:16)
[2019-05-11] MEDS: INSULIN LISPRO 100 UNITS/ML SQ PRN (06:45)
[2019-05-11 07:21] LABS: BASOPHILS % (AUTO) 0.9 % (0.0-2.0); EOSINOPHILS % (AUTO) 6.5 % (1.0-6.0); HEMATOCRIT 26.7 % (36-46); HEMOGLOBIN 9.4 g/dL (12.0-16.0); LYMPHOCYTES # (AUTO) 0.4 K/uL (1.0-4.8); LYMPHOCYTES % (AUTO) 20.1 % (22.0-44.0); MEAN CORPUSCULAR HEMOGLOBIN 33.7 pg (26.0-34.0); MEAN CORPUSCULAR HGB CONC 35.4 G/dL (31.0-37.0); MEAN CORPUSCULAR VOLUME 95 fL (80-100); MONOCYTES # (AUTO) 0.2 K/uL (0.1-1.0); MONOCYTES % (AUTO) 9.6 % (2.0-9.0); NEUTROPHILS # (AUTO) 1.3 K/uL (1.8-7.7); NEUTROPHILS % (AUTO) 62.9 % (40.0-70.0); PLATELET COUNT (AUTO) 51 K/uL (150-450); RED CELL DISTRIBUTION WIDTH 17.5 % (11.5-14.5)
[2019-05-11] MEDS: BUMETANIDE 1 MG TABLET PO SCH (07:50)
[2019-05-11] MEDS: RIFAXIMIN 550 MG TABLET PO SCH (07:50)
[2019-05-11] MEDS: SPIRONOLACTONE 50 MG TABLET PO SCH (07:50)
[2019-05-11] MEDS: LACTULOSE 20 GM/30 ML SOLUTION UDCUP PO SCH (07:51)
[2019-05-11 07:52] VITALS: BP 120/56
[2019-05-11 07:52] LABS: ALBUMIN 2.2 g/dL (3.4-5.0); BILIRUBIN,TOTAL 1.4 mg/dL (0.1-1.0); CALCIUM, TOTAL 8.3 mg/dL (8.8-10.5); CREATININE 1.27 mg/dL (0.60-1.30); POTASSIUM 4.4 mmol/L (3.5-5.1); TOTAL PROTEIN, SERUM 5.5 g/dL (6.4-8.2)
== END 2019-05-11 09:40 | disposition left against medical advice (07) | DRG 441 ==
LOC: EMS 13:49 → 5S 17:59
PROVIDERS: ADMIT Hospitalist; ATTEND Hospitalist
DX: K72.90 Hepatic failure, unspecified without coma (principal); E43 Unspecified severe protein-calorie malnutrition; N39.0 Urinary tract infection, site not specified; K76.6 Portal hypertension; I85.10 Secondary esophageal varices without bleeding; E11.9 Type 2 diabetes mellitus without complications; I27.20 Pulmonary hypertension, unspecified; E03.9 Hypothyroidism, unspecified; K76.9 Liver disease, unspecified; I50.9 Heart failure, unspecified; I11.0 Hypertensive heart disease with heart failure; K70.31 Alcoholic cirrhosis of liver with ascites; Z53.29 Procedure and treatment not carried out because of patient's decision for other reasons; B96.20 Unspecified Escherichia coli [E. coli] as the cause of diseases classified elsewhere; Z79.4 Long term (current) use of insulin
CPT/HCPCS: 51702; 70450; 83605; 87040; 87081; 87086; 93005; 97116; 97162; 97165; 97530; 97535; 99291; J0696; J3490; J7050